=== PATIENT | female | born 1960 | race Caucasian/White ===

== ENCOUNTER 2017-07-31 11:23 | Emergency (ER) | payer OTHER ==
--- NOTE | 2017-07-31 12:08 | ERNOTE ---
Upper Extremity HPI - Narrative Date of Service: 07/31/17 - General Extremities Pain Location: shoulder: left, arm: left Time Seen by Provider: 07/31/17 11:57 Source: patient Exam Limitations: no limitations - Immun/Allergies/Home Medications Immunizations: IMMUNIZATION HX Immunizations Up to Date Yes History of Influenza Vaccine Yes Hx Pneumococcal Vaccination No Allergies/Adverse Reactions: Allergies Allergy/AdvReac Type Severity Reaction Status Date / Time No Known Allergies Allergy Verified 07/31/17 11:50 Home Medications: HOME MEDICATIONS Atorvastatin Calcium [Lipitor] 10 mg PO DAILY 04/13/16 [Last Taken Unknown] Duloxetine HCl [Cymbalta] 60 mg PO DAILY 04/13/16 [Last Taken Unknown] Enalapril Maleate [Vasotec] 20 mg PO DAILY 04/13/16 [Last Taken Unknown] Meloxicam [Mobic] 15 mg PO DAILY 04/13/16 [Last Taken Unknown] Methadone HCl [Methadone] 10 mg PO Q8H 04/13/16 [Last Taken Unknown] Metoprolol Tartrate [Lopressor] 50 mg PO BID 04/13/16 [Last Taken 04/17/16 19:00 ] oxyCODONE HCL/ACETAMINOPHEN [Percocet 5 MG/325 MG] 1 tab PO Q6H PRN 04/13/16 [ Last Taken Unknown] Baclofen 10 mg PO TID 07/31/17 [Last Taken Unknown] Gabapentin 300 mg PO TID 07/31/17 [Last Taken Unknown] - History of Present Illness Narrative: Patient is a 56-year-old who looks older than her stated age and serum complaining of left arm soreness that has been ongoing for the past also. The onset of her arm soreness as she reported aid of the epigastric area but she denies having pain in the area right now. She also denies left arm pain just soreness and heaviness. She reports this heaviness radiates to the left shoulder blade area and to the midline cervical spine area. She denies any injury, numbness, tingling sensation, paresthesia, of the left upper extremity. He also denies any bowel dysfunction, urinary dysfunction, disturbance, Occurred: this morning Severity: mild Associated Symptoms: Denies: tingling, weakness, numbness distally, loss of feeling, loss of power (rt arm), loss of power (lt arm) Other Injuries: Reports: none Review of Systems - Review of Systems Constitutional: Present: See HPI EYE: Present: see HPI ENT: Present: See HPI Respiratory: Present: See HPI Cardiology: Present: See HPI Gastrointestinal/Abdominal: Present: See HPI Genitourinary: Present: See HPI Musculoskeletal: Present: See HPI Skin: Present: See HPI Neurological: Present: See HPI Endocrine: Present: See HPI - Patient's Past Medical History Patient History - Medical: Chronic Pain, Depression, GERD, Headache, Other Patient History - Cardiac/Respiratory: Hypertension, Hyperlipidemia, CPAP/BiPAP Home Use, Sleep Apnea Patient History - Cancer: No Hx of Cancer Patient History - Surgical Procedures: Colonoscopy, , EGD, Hysterectomy , Other Patient History - Other: None - Family History Father Family History - Medical: , Other Family History - Cardiac/Respiratory: No pertinent hx Mother Family History - Medical: , Other Family History - Cardiac/Respiratory: COPD Cousins Family History - Medical: No pertinent hx Family History - Cardiac/Respiratory: No pertinent hx - Social History Living Situations: alone Abuse History: No History of abuse Psych History: Hx of Depression, Current tx/ever been on anti-depressants or anti-anxiety meds Smoking Status: Former smoker Have you smoked in the past 12 months: No Do you dip or chew tobacco: No Alcohol Use: none Drug Use: none - Immunizations Immunizations Up to Date: Yes Hx Pneumococcal Vaccination: No History of Influenza Vaccine: Yes Physical Exam - Physical Exam General Appearance: Present: wd/wn, alert, no apparent distress Head Exam: Present: normal inspection, no evidence of injury Eye Exam: Normal inspection: bilateral, PERRL: bilateral, EOMI: bilateral Ears, Nose, Throat: Present: normal ENT inspection, normal except - Neck: Present: normal inspection, nontender Respiratory: Present: no respiratory distress, normal breath sounds Cardiovascular/Chest: Present: regular rate, rhythm, no murmur Extremity Exam: Present: normal inspection, other - she appears to have some tenderness of the C-spine region. She demonstrated a restricted range of motion on C-spine flexion and extension, bending of the C-spine, rotational movement. foraminimal compression test is negative. 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 Absent: motor weakness DTR: N=norm/NB=norm/brisk/A=abs/DD=dull/dimin/HC=hyperactive: Bicep (R): Normal , Bicep (L): Normal, Tricep (R): Normal, Tricep (L): Normal Skin Exam: Present: normal color, warm/dry ED Progress - Results and Orders Patient's Lab Results:: I have reviewed the patient's lab results. - Vital Signs Patient's Vital Signs:: I have reviewed the patient's vital signs. Vital Signs: Vital Signs 07/31/17 11:43 Temperature 37.4 C Pulse Rate 85 Respiratory 17 Rate Blood Pressure 172/90 O2 Sat by Pulse 99 Oximetry - Progress/Reassessment Chief Complaint: Upper Extremity Injury/Problem Progress:: Unchanged Progress Note-Subjective: 07/31/17 13:43 Cervical spine radiograph done and reviewed consistent with no acute fracture noted. She appears to have narrowing of the C6-C7 disc space with some spurring - Transfer of Care Expected Disposition: Discharge Departure Clinical Impression: Left arm pain Osteoarthritis of cervical spine Qualifiers: Spinal osteoarthritis complication: unspecified spinal osteoarthritis Qualified Code(s): M47.812 - Spondylosis without myelopathy or radiculopathy, cervical region - Departure Disposition: Home self-care Condition: Stable Instructions: Cervical Sprain, [id number] Language: Samoan Additional Instructions: Patient instructed to follow up his primary care physician and not 3-5 days. She likely needs physical therapy with referral and possible MRI evaluation of the cervical spine especially if she fails physical therapy. Referrals: Cookie Torres, DO [Primary Care Provider] -
[2017-07-31 14:02] VITALS: BP 137/74
== END 2017-07-31 13:59 | disposition home or self-care (01) ==
LOC: ER 11:23
DX: M47.812 Spondylosis without myelopathy or radiculopathy, cervical region (principal); M79.602 Pain in left arm; Z87.891 Personal history of nicotine dependence